=== PATIENT | male | born 1950 | race Caucasian/White ===

== ENCOUNTER 2021-04-08 10:53 | Emergency (ER) | payer MEDICARE ==
[~2021-04-08] VITALS: Ht 182.9 cm; Wt 100.0 kg
[2021-04-08 11:52] LABS: HEMATOCRIT 47.5 % (39.0-50.0); HEMOGLOBIN 16.3 g/dl (14.0-18.0); IMMATURE GRANULOCYTES 0.3 % (0.0-5.0); MEAN CELL VOLUME 89.8 fL CALC (80.0-100.0); MEAN CORPUSCULAR HGB 30.8 pG CALC (26.0-32.0); MEAN CORPUSCULAR HGB CONC 34.3 g/dL CAL (32.0-36.0); NEUT# 3.52 thou/uL (1.82-7.42); RED BLOOD COUNT 5.29 mill/uL (4.70-6.10)
[2021-04-08 12:08] LABS: ALBUMIN 4.1 g/dL (3.2-5.0); ALKALINE PHOSPHATASE 87 u/l (38-126); BILIRUBIN, TOTAL 0.6 mg/dL (0.0-1.4); BUN 19 mg/dL (8-23); BUN/CREATININE RATIO 16 (12-20 (CALC)); CARBON DIOXIDE 24 mmol/l (22-30); CHLORIDE 100 mmol/l (95-108); CREATININE 1.2 mg/dL (0.7-1.3); GFR 60 ML/MIN (>=60 (CALC)); GFR FOR AFR.AMER. > 60 ML/MIN (>=60 (CALC)); SGOT/AST 36 u/l (19-48); TOTAL PROTEIN 7.7 g/dL (6.3-8.2)
[2021-04-08 12:11] LABS: ANION GAP 14 (6-22 (CALC)); SODIUM 134 mmol/l (137-146)
[2021-04-08 14:07] VITALS: BP 143/79
== END 2021-04-08 14:07 | disposition home or self-care (01) ==
LOC: ED 10:53
PROVIDERS: Family Medicine
DX: U07.1 COVID-19 (principal)